=== PATIENT | female | born 1985 | race Two or more races ===

== ENCOUNTER 2016-05-21 10:06 | Emergency (ER) | payer SELFPAY ==
[2016-05-21] MEDS ORDERED: SODIUM CHLORIDE 0.9% 1,000 ML ONE (10:39)
[2016-05-21] MEDS ORDERED: ONDANSETRON 4 MG/2ML 2 ML VIAL ONE (10:39)
[2016-05-21] MEDS ORDERED: MORPHINE SULFATE 4 MG/ML SYRINGE ONE ×2 (10:39→11:08)
[2016-05-21 11:04] LABS: ABSOLUTE NEUTROPHIL COUNT 12.8 K/mm3 (1.8-7.7); BASO % 0.2 % (0.2-1.0); EOS % 0.2 % (0.9-2.9); HEMATOCRIT 40.9 % (37.0-47.0); HEMOGLOBIN 13.3 gm/l (12.0-16.0); IMM NEUT # 0.1 K/mm3 (0-0.2); IMM NEUT% 0.4 % (0-1); LYMPH # 1.4 (1.0-4.8); LYMPH % 9.3 % (15-45); MEAN CELL VOLUME 89.1 fl (81.0-99.0); MEAN CORPUSCULAR HGB CONC 32.5 g/dl (33.0-37.0); MONO # 0.6 (0.0-0.8); MONO % 3.8 % (4-12); NEUT % 86.1 % (43-75); PLATELET COUNT 285 K/mm3 (130-400); RED CELL DISTRIBUTION WIDTH 13.2 % (11.5-14.5)
[2016-05-21 11:20] LABS: ALB/GLOB RATIO 1.4 (>1.0); ALBUMIN 4.3 gm/dL (3.5-5.7); CALCIUM 9.4 mg/dL (8.6-10.3)
--- NOTE | 2016-05-21 12:23 | CT ---
PEDRO GARCIA Noncontrast CT abdomen and Pelvis COMPARISON:None CLINICAL HISTORY:Abdominal and back pain PROCEDURE: Helical CT using multidetector technique was applied to the abdomen and pelvis. No contrast was given per ordering physician. Sagittal, axial and coronal images are reviewed. Findings CT abdomen (noncontrast): Lung bases are clear. Heart is not enlarged. There is no pericardial effusion. Fatty changes of liver are identified. The gallbladder is somewhat distended. There are 21.7 cm gallstones with one in the gallbladder neck. There is no suspicious biliary dilation. Pancreas, spleen, adrenal glands, kidneys, aorta, IVC and portal vein are normal. The stomach is somewhat thick walled but empty. The small bowel is not dilated. There is air and stool within a prominent:. The cecum is in the midabdomen and measures 10 cm in diameter however there is no evidence for obstruction or volvulus. The appendix is surgically absent. There is no free air, free fluid or suspicious adenopathy. Regional skeleton is unremarkable. CT pelvis (noncontrast): The bladder is normal. Normal size uterus is to the right. Ovaries are symmetric in size and normal. The rectum is distended with air. Air is throughout the descending colon and sigmoid colon as well. The small bowel is normal size. There is no free air, free fluid or suspicious adenopathy. IMPRESSION: 1. Mild gallbladder distention. There are 21.7 cm gallstones with one in the gallbladder neck. There is no biliary dilation. 2. Mild diffuse prominence of the colon without evidence for obstruction 3. Prior appendectomy Note:The above report was uploaded to [facility]'s electronic medical records system at 1219 hours.
[2016-05-21] MEDS ORDERED: GLYCERIN ADULT PR ONE (13:19)
== END 2016-05-21 14:46 | disposition home or self-care (01) ==
LOC: ED 10:06
DX: R10.84 Generalized abdominal pain (principal); K63.89 Other specified diseases of intestine
CPT/HCPCS: 83690; 84703; 85025; 80053; 74176; 96375; 99283; 96374; 96361 ×3; 99284; A9270; J2270 ×2; J2405; J7030